=== PATIENT | male | born 1950 | race Caucasian/White ===

== ENCOUNTER 2016-11-07 10:56 | Emergency (ER) | payer MEDICARE, BC ==
[2016-11-07] MEDS ORDERED: SODIUM CHLORIDE 0.9% 1,000 ML IV STA (11:20)
[2016-11-07] MEDS ORDERED: KETOROLAC 30 MG/ML 1 ML VIAL IVP STA (11:20)
[2016-11-07] MEDS ORDERED: ORPHENADRINE 30 MG/ML 2 ML VIAL IVP STA (11:20)
--- NOTE | 2016-11-07 11:24 | ED ---
Neck Injury/Pain HPI - General Chief Complaint: Neck Pain/Injury Stated Complaint: neck pain Time Seen by Provider: 11/07/16 11:00 Source: patient, family, RN notes reviewed Mode of arrival: ambulatory Limitations: no limitations - History of Present Illness Initial Comments: This is a 66-year-old male with a history of a cholesterol who states he had the onset at 9 PM last night after waking up from a nap of some sharp upper neck pain they get worse with movement of his head. He denies any trauma he states that about 5 hours earlier he did not out and dropped his head somewhat but did not hit it on anything. No prior history of neck injuries he does have a history of lower back disc disease. He also is scheduled for an MRI later this week chicken his pancreas apparently developed pancreatitis from his anti- lipid medication. He denies any chest or abdominal pain any focal weakness was upper or lower extremities no blurry vision he does state he has a bit of a sore throat at this time. He denies any other neck or back pain. He points to the base of the midline occiput and junction of the neck. He states does not hurt to press on a serious when he moves his head. He does state at rest the pain is perhaps 1/10 severity with movement it's approximately 8/10 in severity. MD Complaint: neck pain - Related Data Previous Rx's Medication Instructions Recorded Cyclobenzaprine [Flexeril] 10 mg PO TID #14 tab 11/07/16 Ibuprofen [Motrin] 800 mg PO Q6HR PRN #20 tab 11/07/16 Allergies Allergy/AdvReac Type Severity Reaction Status Date / Time atenolol Allergy Unknown Verified 11/07/16 11:08 Penicillins Allergy Unknown Verified 11/07/16 11:08 tree nut [Nut] Allergy Unknown Verified 11/07/16 11:08 verapamil Allergy Unknown Verified 11/07/16 11:08 wheat Allergy Unknown Verified 11/07/16 11:08 Review of Systems ROS Statement: Those systems with pertinent positive or pertinent negative responses have been documented in the HPI. ROS Other: All systems not noted in ROS Statement are negative. Past Medical History Past Medical History: No Reported History History of Any Multi-Drug Resistant Organisms: None Reported Past Surgical History: Appendectomy Past Psychological History: No Psychological Hx Reported Smoking Status: Never smoker Past Alcohol Use History: None Reported Past Drug Use History: None Reported General Exam - General Exam Comments Initial Comments: This is a well-developed well-nourished awake alert oriented 3 male Limitations: no limitations General appearance: alert, in no apparent distress Head exam: Present: atraumatic, normocephalic, normal inspection Eye exam: Present: normal appearance, PERRL, EOMI. Absent: scleral icterus, conjunctival injection, periorbital swelling ENT exam: Present: normal exam, mucous membranes moist Neck exam: Present: normal inspection, other (The patient is not fully move his neck laterally due to the pain.). Absent: tenderness, meningismus, full ROM, lymphadenopathy Respiratory exam: Present: normal lung sounds bilaterally. Absent: respiratory distress, wheezes, rales, rhonchi, stridor Cardiovascular Exam: Present: regular rate, normal rhythm, normal heart sounds. Absent: systolic murmur, diastolic murmur, rubs, gallop, clicks GI/Abdominal exam: Present: soft, normal bowel sounds. Absent: distended, tenderness, guarding, rebound, rigid Extremities exam: Present: normal inspection, full ROM, normal capillary refill. Absent: tenderness, pedal edema, joint swelling, calf tenderness Back exam: Present: normal inspection Neurological exam: Present: alert, oriented X3, CN II-XII intact Psychiatric exam: Present: normal affect, normal mood Skin exam: Present: warm, dry, intact, normal color. Absent: rash Course Vital Signs 11/07/16 11/07/16 10:58 12:43 Temperature 97 F L 98.6 F Pulse Rate 92 68 Respiratory 20 16 Rate Blood Pressure 150/80 138/82 O2 Sat by Pulse 99 99 Oximetry Medical Decision Making - Medical Decision Making I did reevaluate the patient initially much improved at this time with increased mobility of his neck the presentation is consistent with a musculoskeletal etiology. He'll be discharged with appropriate medication - Lab Data Result diagrams: 11/07/16 11:42 11/07/16 11:42 Lab Results 11/07/16 11/07/16 11/07/16 Range/Units 11:42 11:42 11:42 WBC 7.3 (3.8-10.6) k/uL RBC 5.40 (4.30-5.90) m/uL Hgb 16.2 (13.0-17.5) gm/dL Hct 47.9 (39.0-53.0) % MCV 88.6 (80.0-100.0) fL MCH 30.0 (25.0-35.0) pg MCHC 33.8 (31.0-37.0) g/dL RDW 13.0 (11.5-15.5) % Plt Count 202 (150-450) k/uL Neutrophils % 67 % Lymphocytes % 22 % Monocytes % 6 % Eosinophils % 2 % Basophils % 0 % Neutrophils # 4.9 (1.3-7.7) k/uL Lymphocytes # 1.6 (1.0-4.8) k/uL Monocytes # 0.5 (0-1.0) k/uL Eosinophils # 0.1 (0-0.7) k/uL Basophils # 0.0 (0-0.2) k/uL Sodium 143 (137-145) mmol/L Potassium 4.2 (3.5-5.1) mmol/L Chloride 105 (98-107) mmol/L Carbon Dioxide 26 (22-30) mmol/L Anion Gap 12 mmol/L BUN 20 (9-20) mg/dL Creatinine 1.00 (0.66-1.25) mg/dL Est GFR (MDRD) Af Amer >60 (>60 ml/min/1.73 sqM) Est GFR (MDRD) Non-Af >60 (>60 ml/min/1.73 sqM) Glucose 113 H (74-99) mg/dL Calcium 10.2 (8.4-10.2) mg/dL Magnesium 1.8 (1.6-2.3) mg/dL Total Bilirubin 0.8 (0.2-1.3) mg/dL AST 32 (17-59) U/L ALT 39 (21-72) U/L Alkaline Phosphatase 69 (38-126) U/L Total Creatine Kinase 161 (55-170) U/L CK-MB (CK-2) 2.5 H* (0.0-2.4) ng/mL CK-MB (CK-2) Rel Index 1.6 C-Reactive Protein <5.0 (<10.0) mg/L Total Protein 7.9 (6.3-8.2) g/dL Albumin 4.5 (3.5-5.0) g/dL Amylase 128 H (30-110) U/L Lipase 303 H (23-300) U/L - Radiology Data Radiology results: report reviewed (I did review the imaging and reports no acute findings patient does demonstrate degenerative changes to the cervical spine no acute changes however.), image reviewed Disposition Clinical Impression: Strain of neck muscle, Disc disorder of cervical region Disposition: HOME SELF-CARE Condition: Good Instructions: Cervical Strain (ED) Prescriptions: Cyclobenzaprine [Flexeril] 10 mg PO TID #14 tab Ibuprofen [Motrin] 800 mg PO Q6HR PRN #20 tab PRN Reason: Pain
[2016-11-07 11:57] LABS: Basophils % (A) 0 %; CH 30.1; CHCM 34.1; Eosinophils # (A) 0.1 k/uL (0-0.7); Eosinophils % (A) 2 %; HCT 47.9 % (39.0-53.0); HDW 2.41; HGB 16.2 gm/dL (13.0-17.5); Luc # (Auto) 0.18; Luc % (Auto) 3; Lymphocytes # (A) 1.6 k/uL (1.0-4.8); Lymphocytes % (A) 22 %; MCHC 33.8 g/dL (31.0-37.0); MCV 88.6 fL (80.0-100.0); Mean Platelet Volume 6.6; Monocytes # (A) 0.5 k/uL (0-1.0); Monocytes % (A) 6 %; Neutrophils # (A) 4.9 k/uL (1.3-7.7); Neutrophils % (A) 67 %; WBC 7.3 k/uL (3.8-10.6); WBC (Perox) 6.89
[2016-11-07 12:23] LABS: ALT 39 U/L (21-72); AST 32 U/L (17-59); Alkaline Phosphatase 69 U/L (38-126); Amylase 128 U/L (30-110); Anion Gap 12 mmol/L; Blood Urea Nitrogen 20 mg/dL (9-20); C Reactive Protein <5.0 mg/L (<10.0); Calcium 10.2 mg/dL (8.4-10.2); Carbon Dioxide 26 mmol/L (22-30); Chloride 105 mmol/L (98-107); Glucose 113 mg/dL (74-99); Magnesium 1.8 mg/dL (1.6-2.3); Non-African American GFR(MDRD) >60 (>60 ml/min/1.73 sqM); Potassium 4.2 mmol/L (3.5-5.1); Sodium 143 mmol/L (137-145); Total Bilirubin 0.8 mg/dL (0.2-1.3); Total Protein 7.9 g/dL (6.3-8.2)
[2016-11-07 12:31] LABS: Creatine Kinase MB 2.5 ng/mL (0.0-2.4)
--- NOTE | 2016-11-07 12:33 | CT ---
EXAMINATION TYPE: CT brain cspine wo con DATE OF EXAM: 11/07/2016 12:09 PM COMPARISON: NONE HISTORY: Neck stiffness CT DLP: 1549.6 mGycm, Automated exposure control for dose reduction was used. CONTRAST: None CT of the brain is performed utilizing 3 mm thick sections through the posterior fossa and 3 mm thick sections through the remaining calvarium. Study is performed within 24 hours of arrival to the hospital. No abnormal hyperdensity is present to suggest an acute intracranial hemorrhage. No mass lesion is evident. No acute infarcts are evident. Ventricles and sulci are appropriate for the patient age. Retention cysts are within the maxillary sinuses bilaterally. IMPRESSIONS: 1. No acute intracranial process. 2. Retention cysts or polyps within the maxillary sinuses. CT cervical spine. COMPARISON: None CT of the cervical spine is performed in the axial plane at 2 mm thick sections. Reconstructed image s in the coronal, and sagittal plane are reviewed on the computer. No acute fractures are evident. There is minimal retrolisthesis of C3 on C4. There is loss of disc height at C3-C4. Disc heights are preserved. Vertebral body heights are preserved. No spinal canal stenosis is evident. No neural foraminal stenosis is evident. IMPRESSIONS: 1. Retrolisthesis of C3 on C4. Degenerative disc changes are present C3-C4. These findings are stable from April 2010
[2016-11-07 12:45] VITALS: PULSE 68; TEMP 98.6
[2016-11-07 14:22] VITALS: BP 153/86; RESP 18
== END 2016-11-07 14:22 | disposition home or self-care (01) ==
LOC: EC 10:56
DX: S16.1XXA Strain of muscle, fascia and tendon at neck level, initial encounter (principal); M53.82 Other specified dorsopathies, cervical region; J02.9 Acute pharyngitis, unspecified; J34.89 Other specified disorders of nose and nasal sinuses; Z88.0 Allergy status to penicillin; Z88.8 Allergy status to other drugs, medicaments and biological substances; Z91.018 Allergy to other foods; X58.XXXA Exposure to other specified factors, initial encounter
CPT/HCPCS: 99284; 96374; 96375; 96361 ×3; 36415; 80053; 82150; 82550; 82553; 83690; 83735; 85025; 86140; 72125; 70450; J2360; J1885

== ENCOUNTER → 2016-11-09 | Outpatient (CLI) | payer MEDICARE, BC ==
--- NOTE | 2016-11-09 12:55 | MR ---
MR pancreas without contrast history: Epigastric pain No previous exam for comparison. There is no ascites. Exam may be limited by lack of contrast. There is no hydronephrosis, no evident renal mass. Adrenal glands are unremarkable. Gallbladder shows no abnormal luminal signal abnormality . Liver shows no evident mass on the noncontrast exam. Spleen pancreas are within normal limits. Stom ach shows contents present. No evident bowel obstruction. No retroperitoneal adenopathy. Aorta shows normal caliber. Pancreas is unremarkable. No dilated ducts. There are no pleural effusions. The heart is not enlarged. IMPRESSION: No abnormality evident to account for patient's symptoms.
== END | disposition home or self-care (01) ==
LOC: RADMRIMAIN 11:05
PROVIDERS: ATTEND Internal Medicine
DX: R10.13 Epigastric pain (principal)
CPT/HCPCS: 74181

== ENCOUNTER 2021-07-05 14:07 | Emergency (ER) | payer MEDICARE, BC ==
[2021-07-05] MEDS ORDERED: ASPIRIN 81 MG PO STA (14:48)
--- NOTE | 2021-07-05 14:57 | ED ---
General Adult HPI - General Chief complaint: Shortness of Breath Stated complaint: SOB, Weakness Time Seen by Provider: 07/05/21 14:23 Source: patient, RN notes reviewed, old records reviewed Mode of arrival: ambulatory Limitations: no limitations - History of Present Illness Initial comments: Patient is a 70-year-old male with past medical history remarkable for globus and remote asthma who presents to the emergency department complaining of shortness of breath. States it is been slowly worsening over the last week or so. He states it is somewhat worse with exertion. Denies any worsening orthopnea, paroxysmal nocturnal dyspnea, lower extremity edema. States he did receive the COVID-19 vaccination. Denies any fevers or chills or cough. Denies any abdominal pain, nausea, vomiting. States he does have a history of GERD and initially thought that this may be contributing to it but states it is not improved. He does endorse having a mild substernal chest pain which has since resolved. He denies any urinary complaints. Denies any weakness, numbness, headaches, blurry vision. Denies any current chest pain. He otherwise has no acute complaints at this time. Denies any history of blood clots himself or family members. Denies any hemoptysis. Patient is uncertain what is causing the shortness breath. He initially presents from urgent care who performed chest x-ray, single was clear, and was instructed to come here for blood work. Has no prior cardiac history. - Related Data Home Medications Medication Instructions Recorded Confirmed No Known Home Medications 07/05/21 07/05/21 Allergies Allergy/AdvReac Type Severity Reaction Status Date / Time atenolol Allergy Unknown Verified 07/05/21 15:16 Penicillins Allergy Unknown Verified 07/05/21 15:16 tree nut [Nut] Allergy Unknown Verified 07/05/21 15:16 verapamil Allergy Unknown Verified 07/05/21 15:16 wheat Allergy Unknown Verified 07/05/21 15:16 Review of Systems ROS Statement: Those systems with pertinent positive or pertinent negative responses have been documented in the HPI. Review of Systems: CONST: Denies fever EYES: Denies blurry vision ENT: Denies nasal congestion C/V: Denies Chest pain RESP: Endorses shortness breath GI: Denies abdominal pain : Denies dysuria SKIN: Denies rash. MSK: Denies joint pain. NEURO: Denies headache ROS Other: All systems not noted in ROS Statement are negative. Past Medical History Past Medical History: No Reported History History of Any Multi-Drug Resistant Organisms: None Reported Past Surgical History: Appendectomy Past Psychological History: No Psychological Hx Reported Smoking Status: Former smoker Past Alcohol Use History: None Reported Past Drug Use History: None Reported General Exam - General Exam Comments Initial Comments: General: Appears in no acute distress. HEAD: Normal with no signs of head trauma. EYES: PERRLA, EOMI, conjunctiva normal, no discharge. ENT: Hearing grossly intact, normal oropharynx. RESPIRATORY: Clear breath sounds bilaterally. No wheezes, rales, or rhonchi. No accessory muscle use for respirations. C/V: Regular rate and rhythm. S1 and S2 auscultated, no edema, peripheral pulses 2+ and intact throughout ABD: Abd is soft, nontender, nondistended EXT: Normal range of motion, no obvious deformity SKIN: No rashes or lesions observed on exposed skin. NEURO: Alert and oriented 4. Limitations: no limitations Course Vital Signs 07/05/21 07/05/21 07/05/21 14:10 15:00 16:27 Temperature 97.8 F 98 F Pulse Rate 72 57 L 58 L Respiratory 19 18 18 Rate Blood Pressure 152/78 139/82 115/78 O2 Sat by Pulse 99 98 98 Oximetry Medical Decision Making - Medical Decision Making Based on patient's presentation and physical exam, I'm concerned for possible cardiac etiology for his current symptoms. I cannot rule out possible heart failure or pulmonary embolus. Well's scores is low so we will obtain a screening d-dimer in addition to troponin, BNP and basic laboratory studies per chest x-ray and EKG will also be obtained. He will be given an aspirin. Patient was in agreement this plan. Patient will be placed on continuous cardiac monitoring while he is here in the department. Patient's EKG shows no signs of acute ischemia.Patient's laboratory studies are remarkable for a negative d-dimer, as well as a negative troponin and BNP. Patient is covered negative. The remainder of his labs are unremarkable. Patient's chest x-ray shows no acute cardio pulmonary process. On reevaluation, patient is asymptomatic. He isn't feeling improved. I did discuss with him the results of his negative workup and I believe it is safer to be discharged home. Heart scores low. Patient was in agreement this plan. I instructed the patient to follow up with their PCP in the next 3 days. I explained that the patient should return to the emergency department if they experience any worsening symptoms. Strict return precautions were discussed with the patient. The patient expressed understanding of these instructions. I answered all questions that the patient had. The patient was discharged home in good condition with their prescriptions and follow up information. - Lab Data Result diagrams: 07/05/21 14:52 07/05/21 14:52 Lab Results 07/05/21 07/05/21 07/05/21 Range/Units 14:52 14:52 14:52 WBC 6.8 (3.8-10.6) k/uL RBC 5.01 (4.30-5.90) m/uL Hgb 15.1 (13.0-17.5) gm/dL Hct 44.1 (39.0-53.0) % MCV 88.2 (80.0-100.0) fL MCH 30.1 (25.0-35.0) pg MCHC 34.2 (31.0-37.0) g/dL RDW 13.4 (11.5-15.5) % Plt Count 163 (150-450) k/uL MPV 8.3 Neutrophils % 73 % Lymphocytes % 19 % Monocytes % 5 % Eosinophils % 1 % Basophils % 0 % Neutrophils # 4.9 (1.3-7.7) k/uL Lymphocytes # 1.3 (1.0-4.8) k/uL Monocytes # 0.4 (0-1.0) k/uL Eosinophils # 0.0 (0-0.7) k/uL Basophils # 0.0 (0-0.2) k/uL PT 10.8 (9.0-12.0) sec INR 1.0 (<1.2) APTT 26.4 (22.0-30.0) sec D-Dimer <0.17 (<0.60) mg/L FEU Sodium 136 L (137-145) mmol/L Potassium 3.8 (3.5-5.1) mmol/L Chloride 103 (98-107) mmol/L Carbon Dioxide 22 (22-30) mmol/L Anion Gap 11 mmol/L BUN 16 (9-20) mg/dL Creatinine 0.97 (0.66-1.25) mg/dL Est GFR (CKD-EPI)AfAm >90 (>60 ml/min/1.73 sqM) Est GFR (CKD-EPI)NonAf 79 (>60 ml/min/1.73 sqM) Glucose 105 H (74-99) mg/dL Calcium 9.8 (8.4-10.2) mg/dL Magnesium 1.8 (1.6-2.3) mg/dL Total Bilirubin 0.8 (0.2-1.3) mg/dL AST 37 (17-59) U/L ALT 19 (4-49) U/L Alkaline Phosphatase 80 (38-126) U/L Troponin I (0.000-0.034) ng/mL NT-Pro-B Natriuret Pep pg/mL Total Protein 7.4 (6.3-8.2) g/dL Albumin 4.4 (3.5-5.0) g/dL Coronavirus (PCR) (Not Detectd) 07/05/21 07/05/21 07/05/21 Range/Units 14:52 14:52 15:05 WBC (3.8-10.6) k/uL RBC (4.30-5.90) m/uL Hgb (13.0-17.5) gm/dL Hct (39.0-53.0) % MCV (80.0-100.0) fL MCH (25.0-35.0) pg MCHC (31.0-37.0) g/dL RDW (11.5-15.5) % Plt Count (150-450) k/uL MPV Neutrophils % % Lymphocytes % % Monocytes % % Eosinophils % % Basophils % % Neutrophils # (1.3-7.7) k/uL Lymphocytes # (1.0-4.8) k/uL Monocytes # (0-1.0) k/uL Eosinophils # (0-0.7) k/uL Basophils # (0-0.2) k/uL PT (9.0-12.0) sec INR (<1.2) APTT (22.0-30.0) sec D-Dimer (<0.60) mg/L FEU Sodium (137-145) mmol/L Potassium (3.5-5.1) mmol/L Chloride (98-107) mmol/L Carbon Dioxide (22-30) mmol/L Anion Gap mmol/L BUN (9-20) mg/dL Creatinine (0.66-1.25) mg/dL Est GFR (CKD-EPI)AfAm (>60 ml/min/1.73 sqM) Est GFR (CKD-EPI)NonAf (>60 ml/min/1.73 sqM) Glucose (74-99) mg/dL Calcium (8.4-10.2) mg/dL Magnesium (1.6-2.3) mg/dL Total Bilirubin (0.2-1.3) mg/dL AST (17-59) U/L ALT (4-49) U/L Alkaline Phosphatase (38-126) U/L Troponin I <0.012 (0.000-0.034) ng/mL NT-Pro-B Natriuret Pep 135 pg/mL Total Protein (6.3-8.2) g/dL Albumin (3.5-5.0) g/dL Coronavirus (PCR) Not Detected (Not Detectd) - EKG Data -: EKG Interpreted by Me EKG Comments: 12-lead Electrocardiogram Interpretation Note EKG was reviewed and interpreted by myself. 12-lead ECG performed at 1417 is interpreted by me as revealing normal sinus rhythm at a rate of 68 beats per minute. [place] is normal. [place] interval is 142 ms, QRS duration is 84 ms, QTc is 4 and 38 ms.. There were no ST or T wave abnormalities to suggest myocardial ischemia or injury. R wave progression across the precordium was satisfactory. By my interpretation this EKG is non-diagnostic for acute ischemia. Disposition Clinical Impression: Dyspnea Disposition: HOME SELF-CARE Condition: Good Instructions (If sedation given, give patient instructions): Dyspnea (ED) Is patient prescribed a controlled substance at d/c from ED?: No Referrals: Yuki Regan MD [Primary Care Provider] - 1-2 days
[2021-07-05 15:03] VITALS: RESP 18
[2021-07-05 15:12] LABS: Basophils % (A) 0 %; Eosinophils % (A) 1 %; HCT 44.1 % (39.0-53.0); HGB 15.1 gm/dL (13.0-17.5); Lymphocytes # (A) 1.3 k/uL (1.0-4.8); Lymphocytes % (A) 19 %; MCH 30.1 pg (25.0-35.0); MCHC 34.2 g/dL (31.0-37.0); MCV 88.2 fL (80.0-100.0); Mean Platelet Volume 8.3; Monocytes # (A) 0.4 k/uL (0-1.0); Monocytes % (A) 5 %; Neutrophils # (A) 4.9 k/uL (1.3-7.7); Neutrophils % (A) 73 %; Platelet Count 163 k/uL (150-450); RBC 5.01 m/uL (4.30-5.90); RDW 13.4 % (11.5-15.5); WBC 6.8 k/uL (3.8-10.6)
[2021-07-05 15:16] LABS: ALT 19 U/L (4-49); AST 37 U/L (17-59); African American GFR (CKD) >90 (>60 ml/min/1.73 sqM); Albumin 4.4 g/dL (3.5-5.0); Alkaline Phosphatase 80 U/L (38-126); Anion Gap 11 mmol/L; Blood Urea Nitrogen 16 mg/dL (9-20); Calcium 9.8 mg/dL (8.4-10.2); Carbon Dioxide 22 mmol/L (22-30); Chloride 103 mmol/L (98-107); Glucose 105 mg/dL (74-99); Magnesium 1.8 mg/dL (1.6-2.3); Non-African American GFR(CKD) 79 (>60 ml/min/1.73 sqM); Potassium 3.8 mmol/L (3.5-5.1); Sodium 136 mmol/L (137-145); Total Bilirubin 0.8 mg/dL (0.2-1.3); Total Protein 7.4 g/dL (6.3-8.2)
--- NOTE | 2021-07-05 15:17 | XR ---
EXAMINATION TYPE: XR chest 2V DATE OF EXAM: 07/05/2021 COMPARISON: NONE HISTORY: Shortness of breath TECHNIQUE: Frontal and lateral views of the chest are obtained. FINDINGS: Scattered senescent parenchymal changes noted. Hyperinflation compatible with COPD. No evidence for infiltrate. No evidence for atelectasis. Heart size is stable. Mediastinal structures are stable and grossly unremarkable. No evidence for hilar prominence. Degenerative changes dorsal spine. IMPRESSION: 1. No evidence for acute pulmonary disease.
[2021-07-05 15:21] LABS: Partial Thromboplastin Time 26.4 sec (22.0-30.0); Prothrombin Time 10.8 sec (9.0-12.0)
[2021-07-05 16:28] VITALS: BP 115/78; PULSE 58; TEMP 98
== END 2021-07-05 16:27 | disposition home or self-care (01) ==
LOC: EC 14:07
DX: R06.00 Dyspnea, unspecified (principal); Z87.891 Personal history of nicotine dependence; Z88.0 Allergy status to penicillin
CPT/HCPCS: 36415; 71046; 80053; 83735; 83880; 84484; 85025; 85379; 85610; 85730; 87635; 93005; 99285